=== PATIENT | female | born 1995 | race Caucasian/White ===

== ENCOUNTER 2016-07-15 16:40 | Emergency (ER) | payer SELFPAY ==
[~2016-07-15] VITALS: Ht 167.6 cm; Wt 95.3 kg
[2016-07-15 16:44] VITALS: TEMP 36.9; Ht 167.6 cm; Wt 95.3 kg
[2016-07-15] MEDS ORDERED: SPR/100 PO (17:15)
[2016-07-15] MEDS ORDERED: HYDR2.5O TOP (17:29)
[2016-07-15] MEDS ORDERED: DOXY100C PO (17:29)
[2016-07-15 17:46] VITALS: BP 119/67; PULSE 70; O2SAT 98
--- NOTE | 2016-07-15 21:00 | EMERGENCY ROOM VISIT NOTE ---
History First contact with patient: 16:49 Chief Complaint: RASH Stated Complaint: SPREADING RASH L ARM,FACE,SHOULDER History of Present Illness The patient is a 21 year old female who presents to the Emergency Room with complaints of rash on her left arm for the past one day. The patient states she noticed the rash when at work last night. She states the rash is very pruritic, and she believes it is now on her face as well. She has not had any new medications or known exposure to disease. No fever or chills. She considers herself otherwise usually healthy. She has been using Benadryl at home without significant improvement of symptoms. She rates her discomfort 5/ 10. Review of Systems More than 10 systems were reviewed and otherwise negative with the exception of history of present illness. Past Medical/Surgical History No chronic medical disease Family History No pertinent family history Social History Smoking Status: Former Smoker Occupation Status: employed Current/Historical Medications Scheduled Doxycycline Hyclate (Vibramycin), 100 MG PO BID Hydrocortisone (Topical) (Hydrocortisone), 1 APPLN TOP BID Spironolactone (Aldactone), 100 MG PO DAILY Allergies Coded Allergies: No Known Allergies (Unverified , 07/15/16) Physical Exam Vital Signs Date Time Temp Pulse Resp B/P Pulse Ox O2 Delivery O2 Flow Rate FiO2 07/15/16 17:46 70 14 119/67 98 07/15/16 16:44 36.9 74 16 114/57 98 Room Air Pain Rating (0-10): 0 Physical Exam VITALS: Vitals are noted on the nurse's note and reviewed by myself. Vital signs stable. GENERAL: Well-developed, well-nourished, white female, who is in no acute distress and resting comfortably. Patient is cooperative with the examination. HEAD: Normocephalic atraumatic. HEART: Regular rate and rhythm without murmurs gallops or rubs. LUNGS: Clear to auscultation bilaterally without wheezes, rales or rhonchi. No retractions or accessory muscle use. SKIN: The skin was with 2 erythematous raised patches on the left lower arm. These each measure about 3.0 cm in diameter. Additionally there is a third on the left upper arm that measures about 2 cm in diameter. Patches are without lymphangitic streaking or scaling. No significant lesions of the face noted. Medical Decision & Procedures ED Course Physical exam and history were performed. Nursing notes and EMR were reviewed. Patient appears to have 2 erythematous patches on her left arm. Clinically these do not appear like an abscess, but are more concerning for an infection like a small cellulitis than an allergic or contact dermatitis. This may explain why the Benadryl has not significantly improve the patient's discomfort. He does not have lymphangitic streaking or fever. Overall the patient certainly appears well for discharge home. I will cover her with doxycycline for the rash. I will also give her a course of hydrocortisone as her rash is very pruritic. The patient is to follow with her primary care physician with any ongoing or persistent symptoms. She was otherwise invited back to the ER with any new, worsening, or concerning episodes. The chart was completed utilizing [employer] Speech Voice Recognition Software. Grammatical errors, random word insertions, pronoun errors, and incomplete sentences are an occasional consequence of this system due to software limitations, ambient noise, and hardware issues. Any formal questions or concerns about the content, text, or information contained within the body of this dictation should be directly addressed to the provider for clarification. . Medical Decision Differential diagnosis: Etiologies such as contact dermatitis, viral exanthem, urticaria, allergic reaction, Block-Domenic syndrome, toxic epidermal necrolysis, erythema multiforme, cellulitis, scabies, HSV, varicella, zoster, eczema, staph scalded skin syndrome, fungal infection, as well as others were entertained. Impression Primary Impression: Rash and nonspecific skin eruption Departure Information Dispostion Home / Self-Care Condition GOOD Prescriptions Hydrocortisone (Topical) (HYDROCORTISONE) 2.5 % Oin 1 APPLN TOP BID for 5 Days, #30 GM Prov: Paco Urbina PA-C 07/15/16 Doxycycline Hyclate (VIBRAMYCIN) 100 Mg Cap 100 MG PO BID for 10 Days, #20 CAP Prov: Paco Urbina PA-C 07/15/16 Forms HOME CARE DOCUMENTATION FORM, Work Instructions, Additional Instructions: Patient seen and evaluated today in the emergency department for medica care. May return to work on 07/16/2016. Please excuse. IMPORTANT VISIT INFORMATION Patient Instructions My [facility] Additional Instructions You were seen and evaluated today on an emergency basis only. This is not a substitute for, or an effort to provide, complete comprehensive medical care. It is not possible to recognize and treat all injuries or illnesses in a single emergency department visit. For this reason it is recommended that you followup with your primary care physician next week for ongoing care and evaluation. Take doxycycline 100 mg twice daily for the next 10 days. Take this medication with food as it can cause an upset stomach. Apply hydrocortisone cream twice daily to the arm. Do not use this on the face. Continue Benadryl. You are welcome to return to the emergency department anytime with new, worsening, or concerning symptoms. Work Instructions Additional Work Instructions: Patient seen and evaluated today in the emergency department for medical care. May return to work on 07/16/2016. Please excuse.
== END 2016-07-15 17:47 | disposition home or self-care (01) ==
LOC: C.EDB 16:44 → C.EDD 17:47
DX: R21 Rash and other nonspecific skin eruption (principal); Z87.891 Personal history of nicotine dependence

== ENCOUNTER 2017-06-27 15:45 | Emergency (ER) | payer OTHER ==
[~2017-06-27] VITALS: Ht 167.6 cm; Wt 102.0 kg
[~2017-06-27 15:45] MED LIST: SPR/100 PO
[2017-06-27 15:48] VITALS: TEMP 36.7; Ht 167.6 cm; Wt 102.0 kg
--- NOTE | 2017-06-27 16:14 | DIAGNOSTIC IMAGING REPORT ---
CHEST 2 VIEWS ROUTINE HISTORY: 22 years-old Female cough acute cough with flulike symptoms COMPARISON: None available TECHNIQUE: PA and lateral views of the chest FINDINGS: Cardiomediastinal and hilar silhouettes are within normal limits. No pneumothorax, pleural effusion, focal airspace consolidation or overt pulmonary edema. Increased density of the lung bases to be secondary to overlying soft tissue from patient's breasts. Bones of the chest appear grossly intact. IMPRESSION: No acute process. The above report was generated using voice recognition software. It may contain grammatical, syntax or spelling errors. Electronically signed by: Elias Conner M.D. 06/27/2017 4:13 PM Dictated Date/Time: 06/27/2017 4:12 PM
--- NOTE | 2017-06-27 16:36 | EMERGENCY ROOM VISIT NOTE ---
ED Visit Note First contact with patient: 15:51 CHIEF COMPLAINT: Cough, sore throat HISTORY of present illness: This 22-year-old female presents the ER with chief complaint of cough cough and sore throat for the past 3 days. The patient states she also is losing her voice. The patient denies any ear pain, fever, body aches. The patient states that she has tried [id number] treatment without any results. She is concerned about pneumonia. The patient denies any history of asthma. REVIEW OF SYSTEMS: 6 system review was performed and was negative unless stated otherwise in history of present illness. PMH: The patient is healthy; there is no significant medical or surgical history. SOCIAL HISTORY: Patient denies any today tobacco or alcohol use. PHYSICAL EXAM: Vital Signs were reviewed: Temperature 36.7, blood pressure 126/ 86, pulse 100, respiratory rate 18 Reviewed Nurse's notes and agree. Oxygen saturation is 99 % on room air which is normal . GENERAL: 22-year-old female appears in no acute distress. MENTAL STATUS: Alert, oriented, coherent. EARS: Canals with some cerumen bilaterally. TMs with tubes in place. No drainage noted from the tubes bilaterally. NOSE: Nasal mucosa with moderate erythema engorgement. PHARYNX: Moderate erythema, no edema noted. No exudate noted. Airway is adequate. NECK: Supple, non-tender. No lymphadenopathy noted. LUNGS: Clear to auscultation without wheezes rales or rhonchi. CARDIAC: Regular rate and rhythm without murmur. SKIN: No rashes noted. EMERGENCY COURSE: The patient was evaluated. Rapid strep was negative, culture is pending. Chest x-ray was ordered and interpreted by the radiologist and myself. DIAGNOSTICS:CHEST 2 VIEWS ROUTINE HISTORY: 22 years-old Female cough acute cough with flulike symptoms COMPARISON: None available TECHNIQUE: PA and lateral views of the chest FINDINGS: Cardiomediastinal and hilar silhouettes are within normal limits. No pneumothorax, pleural effusion, focal airspace consolidation or overt pulmonary edema. Increased density of the lung bases to be secondary to overlying soft tissue from patient's breasts. Bones of the chest appear grossly intact. IMPRESSION: No acute process. The above report was generated using voice recognition software. It may contain grammatical, syntax or spelling errors. Electronically signed by: Elias Conner M.D. 06/27/2017 4:13 PM The patient was informed of the findings. The patient was discharged home in stable condition. DIAGNOSIS: Viral upper respiratory infection Pharyngitis DISCHARGE INSTRUCTIONS: Call in 24 hour for throat culture results. Tylenol and/or ibuprofen as needed for fever. Take Tessalon Perles as directed for cough. If symptoms persist or worsen, followup with fafamily doctor. Patient condition was stable. Please see Emergency Department Medical Record for additional patient information; this may include discharge diagnosis, interpretation of EKG, laboratory, and/or radiologic studies, Emergency Department course, etc. Current/Historical Medications No Active Prescriptions or Reported Meds Allergies Coded Allergies: No Known Allergies (Unverified , 06/27/17) Vital Signs Date Time Temp Pulse Resp B/P (MAP) Pulse Ox O2 Delivery O2 Flow Rate FiO2 06/27/17 15:50 99 Room Air 06/27/17 15:48 36.7 100 18 126/86 99 Room Air Departure Information Prescriptions No Active Prescriptions or Reported Meds Referrals No Doctor, Assigned (PCP) Patient Instructions [facility]
[2017-06-27] MEDS ORDERED: BENZ200C59 PO (16:37)
[2017-06-27 16:51] VITALS: BP 168/89; PULSE 111; O2SAT 97
== END 2017-06-27 16:52 | disposition home or self-care (01) ==
LOC: C.EDB 15:47 → C.EDD 16:52
DX: J06.9 Acute upper respiratory infection, unspecified (principal); J02.9 Acute pharyngitis, unspecified

== ENCOUNTER 2018-09-17 09:45 | Inpatient (IN) ==
[2018-09-17] MEDS ORDERED: LACTATED RINGER'S 1,000 ML IV PRN (21:39)
[2018-09-17] MEDS ORDERED: OXYTOCIN 30 UNITS/500 ML BAG IV PRN (21:39)
[2018-09-17] MEDS ORDERED: miSOPROStol 50 MCG TAB PO ONE (21:39)
[2018-09-17 22:13] LABS: Hemoglobin 12.7 g/dL (12.0-16.0); Mean Corpuscular Volume 87.7 fL (80-100); Platelet Count 181 K/uL (130-400); RDW Coefficient of Variation 13.3 % (11.5-14.5); RDW Standard Deviation 42.1 fL (36.4-46.3); Red Blood Count 4.22 M/uL (4.2-5.4)
[2018-09-17 22:23] LABS: Mean Corpuscular Hgb Conc 34.3 g/dL (32-36)
[2018-09-18] MEDS ORDERED: miSOPROStol 50 MCG TAB PO ONE (02:47)
[2018-09-18] MEDS ORDERED: miSOPROStol 50 MCG TAB PO SCH (08:00)
[2018-09-18] MEDS ORDERED: OXYTOCIN 30 UNITS/500 ML BAG IV PRN (13:30)
[2018-09-18] MEDS ORDERED: LACTATED RINGER'S 1,000 ML IV PRN ×2 (13:30→18:34)
[2018-09-18] MEDS: LACTATED RINGER'S 1,000 ML IV SCH ×3 (13:54→22:22)
[2018-09-18] MEDS ORDERED: BUPIVACAINE 0.25% 30 ML VIAL ONE (17:29)
[2018-09-18] MEDS ORDERED: ePHEDrine sulfate 50 MG/ML AMP ONE (17:29)
[2018-09-18] MEDS ORDERED: fentaNYL 2MCG/ML ROPIV 1.25MG/ML 100 ML BAG EPI ONE (17:30)
[2018-09-18] MEDS ORDERED: fentaNYL citrate 100 MCG/2 ML VIAL ONE (17:30)
--- NOTE | 2018-09-18 18:30 | Anesthesiology Consultation ---
Date of Service September 18, 2018 Assessment & Plan Chart Review Chart Review: Acceptable Risk for Labor Epidural Consults Requested none History Height/Weight Height: 5 ft 6 in Weight: 114.562 kg Allergies Allergy/AdvReac Type Severity Reaction Status Date / Time No Known Allergies Allergy Verified 09/17/18 20:47 Medications Home Medications Medication Instructions Recorded Confirmed Last Taken vit [id number] 1 tab PO DAILY 07/26/18 09/17/18 09/17/18 08:30 [ Vitamin] Active Medications Generic Name Dose Route Start Last Admin Trade Name Freq PRN Reason Stop Dose Admin Lactated Ringer's 1,000 mls @ 125 mls/hr 09/17/18 21:45 09/18/18 18:13 Lr IV 09/19/18 21:44 999 mls/hr .Q8H MATHEW Administration Oxytocin 30 units in 500 mls @ 6 mls/hr 09/18/18 13:30 09/18/18 15:20 Pitocin IV 09/20/18 13:29 0.36 units/hr .Q24H PRN 6 mls/hr Labor Induction/Augmentation Titration Protocol 0.36 UNITS/HR Misoprostol 50 mcg 09/18/18 08:00 09/18/18 08:29 Cytotec PO 10/18/18 07:59 50 mcg ONCE MATHEW Administration Social History Smoking Status: Former smoker tobacco type: cigarettes Smoking cigarettes per day: 3 Do You Dip or Chew Tobacco: No Hx Alcohol Use: No Hx Substance Use: No substance use type: does not use Physical Exam Vital Signs Last Vital Signs Temp 36.9 C 09/18/18 18:20 Pulse 71 09/18/18 18:27 Resp 20 09/18/18 18:20 BP 130/82 09/18/18 18:27 Pulse Ox 100 09/18/18 18:27 Testing Laboratory Results 09/17/18 22:04
[2018-09-18] MEDS ORDERED: NALOXONE HCL 0.4 MG/1 ML VIAL/CARP IV PRN (18:34)
[2018-09-18] MEDS ORDERED: NALOXONE HCL 1 MG in SODIUM CHLORIDE 0.9% 1000ML 1,000 ML IV PRN (18:34)
[2018-09-18] MEDS ORDERED: ePHEDrine sulfate 50 MG/ML AMP IV PRN (18:34)
[2018-09-18] MEDS ORDERED: DiphenhydrAMINE HCL 50 MG/ML VIAL IV PRN (18:34)
[2018-09-18] MEDS ORDERED: fentaNYL 2MCG/ML ROPIV 1.25MG/ML 100 ML BAG EPI PRN (18:34)
[2018-09-18] MEDS ORDERED: NALBUPHINE HCL INJ 10 MG/ML AMP IV PRN (18:34)
[2018-09-19] MEDS ORDERED: Nursing to Pharmacy Communication ONE (06:12)
[2018-09-19] MEDS: LACTATED RINGER'S 1,000 ML IV SCH (06:40)
[2018-09-19] MEDS ORDERED: BISACODYL 10 MG SUPP PR PRN (07:23)
[2018-09-19] MEDS ORDERED: SUPERCREAM 0.870% 15 GM JAR EXT PRN (07:23)
[2018-09-19] MEDS ORDERED: OXYCODONE/ACETAMINOPHEN 5mg/325mg TAB PO PRN (07:23)
[2018-09-19] MEDS ORDERED: BENZOCAINE 20% AER SPR 82.5 GM CAN EXT PRN (07:23)
[2018-09-19] MEDS ORDERED: ACETAMINOPHEN 325 MG TAB PO PRN (07:23)
[2018-09-19] MEDS ORDERED: DIPHTHERIA/TETANUS/PERTUSSIS 0.5 ML SYR/VIAL IM ONE (07:23)
[2018-09-19] MEDS ORDERED: ACETAMINOPHEN W/CODEINE #3 1 TAB PO PRN (07:23)
[2018-09-19] MEDS ORDERED: HYDROCORTISONE ACETATE 25 MG SUPP PR PRN (07:23)
[2018-09-19] MEDS ORDERED: OXYTOCIN 30 UNITS/500 ML BAG IV PRN (07:23)
--- NOTE | 2018-09-19 08:06 | Anesthesia Procedure Note ---
Date of Service September 19, 2018 Anesthesia Post Epidural Note Vital Signs Vital Signs: Temp Pulse Resp BP Pulse Ox 37.0 C 67 18 143/68 H 100 09/19/18 03:13 09/19/18 08:02 09/19/18 07:01 09/19/18 08:02 09/19/18 07:07 Pain Intensity Bilateral Abdomen: Pain Intensity: 0 Notes Mental Status: alert / awake / arousable and participated in evaluation Nausea / Vomiting: adequately controlled Pain: adequately controlled Airway Patency, RR, SpO2: stable & adequate BP & HR: stable & adequate Hydration State: stable & adequate Neuraxial Anesthesia: was administered and sensory block is resolving Anesthetic Complications: no major complications apparent and Pt Satisfied with anesthetic care Epidural: Removed without complications and With tip intact
[2018-09-19] MEDS: PRENATAL VITAMIN 1 TAB PO SCH (08:20)
[2018-09-19] MEDS: FERROUS SULFATE 325 MG TAB PO SCH (08:20)
[2018-09-19] MEDS: IBUPROFEN 600 MG TAB PO PRN ×3 (08:29→22:15)
[2018-09-19] MEDS: DOCUSATE SODIUM 100 MG CAP PO SCH ×2 (08:29→20:41)
--- NOTE | 2018-09-19 08:42 | Discharge Summary ---
HOSPITAL COURSE: The patient is 3, para 1, blood types is A positive, group B strep negative, 40 weeks 2 days gestation. She was followed in our office for care and delivery. She was well dated. She did have some trouble with toxemia towards the end of her . She placed on bed rest and eventually brought in for induction. Induction consisted of p.o. Cytotec 3 tablets followed by IV Pitocin and rupture of membranes. Fluid was clear. Pitocin was turned up. She eventually went to full dilatation and delivered a live male via direct occiput anterior position with a severe shoulder dystocia. After the patient went to full dilatation, the head crowned and then retracted, showing turtle sign. We then immediately started by flexing the thighs, pulling the posterior shoulder up, dislodging the shoulder from the suprapubic area by the nurse and then going back and pulling the anterior shoulder down. We worked from above and below and were able finally to dislodge the shoulder and then delivered the . There was a tight nuchal cord noted when the head delivered and we were able to reduce over the head. After the was delivered, was limp, was breathing, was pale. Cord was clamped and cut and sent immediately to the resuscitation bed. Following this, cord blood was taken. With IV Pitocin running, the placenta was removed intact. Inspection of the perineum revealed a second-degree laceration. This was repaired anatomically. The vaginal mucosa was approximated out to beyond the hymenal ring with a running Vicryl. A deep suture was used to approximate the bulbocavernosus muscle. Three deep sutures used to approximate the perineal body and a running subcuticular suture was used to approximate the perineal skin edges. Following this, vag exam including rectovaginal examination revealed no stitches through the rectum. Estimated blood loss was 200 mL. The patient tolerated the procedure well.
[2018-09-20] MEDS: IBUPROFEN 600 MG TAB PO PRN ×3 (01:30→16:23)
[2018-09-20 06:06] LABS: Hematocrit (blood only) 30.8 % (37-47); Hemoglobin 10.5 g/dL (12.0-16.0); Mean Corpuscular Hgb Conc 34.1 g/dL (32-36); Mean Corpuscular Volume 87.7 fL (80-100); Platelet Count 162 K/uL (130-400); RDW Coefficient of Variation 13.6 % (11.5-14.5); RDW Standard Deviation 43.1 fL (36.4-46.3); Red Blood Count 3.51 M/uL (4.2-5.4); White Blood Count 16.44 K/uL (4.8-10.8)
[2018-09-20] MEDS: DOCUSATE SODIUM 100 MG CAP PO SCH ×2 (09:04→21:35)
[2018-09-20] MEDS: PRENATAL VITAMIN 1 TAB PO SCH (09:04)
[2018-09-20] MEDS: FERROUS SULFATE 325 MG TAB PO SCH (09:04)
--- NOTE | 2018-09-20 09:14 | Obstetrical Progress Note ---
Date of Service September 20, 2018 Physical Exam Physical Exam: abdomen soft and non tender vaginal bleeding scant to moderate no calf tenderness ambulating well Results & Data Vital Signs (Past 12 Hours) Vital Signs Temp Pulse Resp BP Pulse Ox 09/20/18 03:25 36.7 C 64 16 111/71 97 09/19/18 23:45 36.8 C 81 16 121/83 99
[2018-09-20 17:29] VITALS: O2SAT 98
[2018-09-20] MEDS ORDERED: BISACODYL 5 MG TABEC PO SCH (20:00)
[2018-09-21] MEDS: IBUPROFEN 600 MG TAB PO PRN ×2 (01:18→07:15)
[2018-09-21 06:49] LABS: Hemoglobin 9.8 g/dL (12.0-16.0)
--- NOTE | 2018-09-21 08:15 | Obstetrical Progress Note ---
Date of Service September 21, 2018 Physical Exam Physical Exam: abdomen soft and non tender vaginal bleeding scant to moderate no calf tenderness ambulating well Results & Data Vital Signs (Past 12 Hours) Vital Signs Temp Pulse Resp BP 09/21/18 00:05 36.8 C 82 18 123/79
[2018-09-21 08:23] VITALS: BP 117/82; PULSE 77; TEMP 97.9
[2018-09-21] MEDS: FERROUS SULFATE 325 MG TAB PO SCH (09:10)
[2018-09-21] MEDS: PRENATAL VITAMIN 1 TAB PO SCH (09:10)
[2018-09-21] MEDS: DOCUSATE SODIUM 100 MG CAP PO SCH (09:11)
== END 2018-09-21 15:25 | disposition home health service (06) | DRG 807 ==
LOC: 4S1 20:25 → 4S2 09-19 14:57